=== PATIENT | female | born 1960 | race Caucasian/White ===

== ENCOUNTER 2019-03-04 09:47 | Inpatient (IN) ==
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
[~2019-03-04 09:47] MED LIST: LR 15ML/HR IV SCH
--- NOTE | 2019-03-04 10:59 | History & Physical Bridge Note ---
Date of Service March 04, 2019 History & Physical Bridge Note I have examined the patient, reviewed the History & Physical and in the interval since the performance of the History & Physical I have noted the following changes of clinical significance: no changes noted
[2019-03-04] MEDS ORDERED: BUPIVACAINE 0.5 % 5 MG/1 ML MPF 30ML VIAL ONE (11:09)
[2019-03-04] MEDS ORDERED: SODIUM CHLORIDE 0.9% PF 50 ML VIAL ONE (11:10)
[2019-03-04] MEDS ORDERED: BUPIVACAINE LIPOSOME 1.3% 266 MG/20 ML VIAL ONE (11:10)
[2019-03-04] MEDS ORDERED: ONDANSETRON INJ 2 MG/ML 2 ML VIAL ONE (11:14)
[2019-03-04] MEDS ORDERED: NEOSTIGMINE METHYLSULFATE 5 MG/5 ML SYR ONE (11:14)
[2019-03-04] MEDS ORDERED: MIDAZOLAM HCL 1 MG/ML 2ML VIAL ONE (11:14)
[2019-03-04] MEDS ORDERED: ROCURONIUM BROMIDE 10 MG/ML 5 ML VIAL ONE ×2 (11:14→12:43)
[2019-03-04] MEDS ORDERED: LIDOCAINE HCL 2% 2 ML VIAL/AMP(20MG/ML) INFIL ONE (11:14)
[2019-03-04] MEDS ORDERED: DEXAMETHASONE SOD INJ 4 MG/ML VIAL ONE (11:14)
[2019-03-04] MEDS ORDERED: PROPOFOL IV EMULSION 10 MG/ML 20 ML VIAL IV ONE ×2 (11:14→12:43)
[2019-03-04] MEDS ORDERED: GLYCOPYRROLATE 0.2 MG/ML VIAL ONE (11:14)
[2019-03-04] MEDS ORDERED: fentaNYL citrate 100 MCG/2 ML VIAL ONE ×3 (11:15→12:15)
[2019-03-04] MEDS ORDERED: SCOPOLAMINE 1.5 MG TDSY TD ONE (11:23)
[2019-03-04] MEDS ORDERED: SCOPOLAMINE 1.5 MG TDSY ONE (11:24)
[2019-03-04] MEDS ORDERED: ATROPINE SULFATE 0.1 MG/ML 10ML SYR IV PRN (11:24)
[2019-03-04] MEDS ORDERED: PROMETHAZINE HCL 6.25 MG in SODIUM CHLORIDE 0.9% 50 ML IV PRN (11:24)
[2019-03-04] MEDS ORDERED: ePHEDrine sulfate 50 MG/ML AMP IV PRN (11:24)
[2019-03-04] MEDS ORDERED: HYDROmorphone INJ 2 MG/ML SYR/VIAL IV PRN (11:24)
[2019-03-04] MEDS ORDERED: ONDANSETRON INJ 2 MG/ML 2 ML VIAL IV PRN ×2 (11:24→16:07)
[2019-03-04] MEDS ORDERED: INDOCYANINE GREEN 25 MG/10 ML INJ ONE (12:04)
--- NOTE | 2019-03-04 12:29 | Fluoroscopy Report ---
FL chest 1V frontal CLINICAL HISTORY: NAVIGATIONAL BRONCH IN OR COMPARISON STUDY: 01/31/2019 FLUOROSCOPY TIME: 28 seconds. NUMBER OF FLUOROSCOPIC IMAGES: 1 FINDINGS: A single intraoperative fluoroscopic spot image demonstrates a bronchoscope with a right up per lobe catheter. IMPRESSION: Intraoperative fluoroscopic spot image demonstrating a bronchoscope with a right upper l obe catheter. Electronically signed by: James Espinal M.D. 03/04/2019 12:28 PM
[2019-03-04] MEDS ORDERED: ESMOLOL HCL INJ 10 MG/ML 10ML VIAL IV ONE (12:43)
[2019-03-04] MEDS ORDERED: CLINDAMYCIN 900 MG in DEXTROSE 5% 50 ML IV ONE (12:45)
[2019-03-04] MEDS ORDERED: ALBUTEROL HFA INHALER 8.5 GM ONE (13:12)
[2019-03-04] MEDS ORDERED: SURGICEL ABSORB HEMOSTAT 2IN X 14IN TOP ONE (13:44)
--- NOTE | 2019-03-04 14:16 | Post Operative Brief Note ---
Immediate Post Op Note v1 Date of Surgery March 04, 2019 Pre & Post Diagnosis Operation Date: 03/04/19 11:25 Pre-Op Diagnosis: Right Lung Nodule Post-Op Diagnosis: Right Lung Nodule Procedure Operation Date: 03/04/19 11:25 Actual Procedures p Navigational Bronchoscopy with ICG Markings, - Orville Ernandez MD, FACS s Right Robotic Video Assisted Thoracoscopy with Right Upper Lobe Wedge Resection, Possible Right Upper Lobectomy with Mediastinal Lymphadenectomy(Right) - Orville Ernandez MD, FACS Surgeon Orville Ernandez MD, FACS Pile Driver Eleanor MARINO Estimated Blood Loss 25 Findings Consistent with Post-Op Diagnosis Drains Chest Tube and Weaver Catheter
[2019-03-04] MEDS ORDERED: METOCLOPRAMIDE HCL INJ 5 MG/ML 2 ML VIAL IV ONE (14:31)
--- NOTE | 2019-03-04 14:45 | XRay Report ---
XR chest 1V portable CLINICAL HISTORY: 58 years-old Female presenting with s/p right lung wedge resection. TECHNIQUE: Portable upright AP view of the chest was obtained. COMPARISON: 01/31/2019. FINDINGS: Right pleural drain position of the right upper lung. Cardiac silhouette mildly enlarged. Suture jorge ulis in noted at the right apex. Small right apical pneumothorax. Collapse of the right upper lobe. Extens vivi opacity at the left lung base. Degenerative changes of the thoracic spine. Gaseous distention of stomach. IMPRESSION: 1. Postsurgical changes of the right apex with right upper lobe collapse. 2. Small right apical pneumothorax with a right pleural drain in place. 3. Mild cardiomegaly. 4. Left basilar infiltrate, possibly extensive atelectasis endometrial pleural effusion. Electronically signed by: Sachin Jacob M.D. 03/04/2019 2:44 PM
[2019-03-04] MEDS: fentaNYL citrate 100 MCG/2 ML VIAL IV PRN ×2 (15:16→15:21)
--- NOTE | 2019-03-04 15:54 | Anesthesiology Progress Note ---
Date of Service March 04, 2019 Anesthesia Post Procedure Vital Signs Vital Signs: Temp Pulse Pulse Resp BP BP Pulse Ox 03/04/19 15:45 36.2 C L 74 16 123/72 97 03/04/19 15:35 36.2 C L 72 16 119/70 94 03/04/19 15:25 64 16 117/66 94 03/04/19 15:15 67 18 125/72 95 03/04/19 15:05 69 18 128/70 98 03/04/19 14:55 70 18 116/68 97 03/04/19 14:45 72 18 112/67 96 03/04/19 14:36 36.0 C L 78 18 110/65 97 03/04/19 10:05 36.7 C 78 20 156/93 H 93 Transfer of Care Handoff Completed per policy Notes Mental Status: alert / awake / arousable Patient Amnestic to Procedure: Yes Nausea / Vomiting: adequately controlled Pain: adequately controlled Airway Patency, RR, SpO2: stable & adequate BP & HR: stable & adequate Hydration State: stable & adequate Anesthetic Complications: no major complications apparent Notes: post op nausea well controlled with zofran and phenergan
[2019-03-04] MEDS ORDERED: KETOROLAC TROMETHAMINE 15 MG/ML VIAL IV PRN (16:07)
[2019-03-04] MEDS ORDERED: OXYCODONE HCL IR 5 MG TAB (IMMEDIATE RELEASE) PO PRN (16:07)
[2019-03-04] MEDS ORDERED: MoRPHine SULFATE 2 MG/ML CARP IV PRN (16:07)
[2019-03-04] MEDS: CHECK SCOPOLAMINE PATCH PLACEMENT SCH (17:12)
[2019-03-04] MEDS: ACETAMINOPHEN 1,000 MG/100 ML VIAL IV SCH (17:26)
[2019-03-04] MEDS: METOCLOPRAMIDE HCL INJ 5 MG/ML 2 ML VIAL IV SCH (17:26)
[2019-03-04] MEDS: DOCUSATE SODIUM 100 MG CAP PO SCH (20:24)
[2019-03-04] MEDS ORDERED: GABAPENTIN 600 MG TAB PO SCH (21:00)
[2019-03-04] MEDS: D5W AND 1/2NSS 1,000 ML IV SCH (21:38)
--- NOTE | 2019-03-04 22:13 | Operative Report ---
DATE OF OPERATION: 03/04/2019 PREOPERATIVE DIAGNOSIS: Suspicious mass, right upper lobe. POSTOPERATIVE DIAGNOSIS: Granulomatous nodule, right upper lobe. PROCEDURE: 1. Electromagnetic navigational bronchoscopy with marking of this mass with indocyanine green dye. 2. Robot-assisted right thoracoscopy with wedge resection of right upper lobe mass. 3. Robot-assisted thoracoscopic lymph node dissection. SURGEON: Orville Ernandez MD MANPOWER DEVELOPMENT SPECIALIST: NED Sotelo (Mr. Daniel was present for the entire case, was at the patient's bedside when I was at the console.) ANESTHESIA: General anesthesia with endotracheal intubation. INDICATION FOR PROCEDURE AND FINDINGS: This is a 58-year-old with a remote history of cigarette smoking, who was found to have a mass in her medial right upper lobe which is quite concerning in appearance. We had a long talk about this and I felt that as her PET scan did not light up anywhere else, I would offer her a wedge resection. She sought a second opinion who agreed. On 03/04/2019, the patient underwent an uncomplicated navigational bronchoscopy and we were able to put the probe right at this mass and indocyanine green was injected. We then turned the patient and we were able to find this area and wedged out 3 separate areas to make sure that we got this. All appeared to be granulomas and I did find a mass that appeared to correlate size and location henry with the mass seen on CT/PET. She really had no air leak at the conclusion of the case. I did dissect out several lymph nodes while waiting for the frozen section. She tolerated it well. Was extubated in the room with negligible blood loss. DESCRIPTION OF PROCEDURE: The patient was brought to the operating room and laid in the supine position. General anesthesia was induced, endotracheal intubation was performed with a single lumen tube. After appropriate timeout had been called and prophylactic antibiotics given, a fiberoptic bronchoscope was placed through the adapter into the endotracheal tube and we got down and could see no abnormalities. I closely inspected each of the airways down to the tertiary bronchi. Coming back, I then placed a navigational probe and we registered the airways. Then going out into the right upper lobe, I was able to get to this mass quite quickly. We did see an abnormality on the radial ultrasound. We then injected 0.5 mL of indocyanine green with 2 mL of air. She tolerated it quite well and we removed the scope, we had no bleeding. She was then switched over to a double lumen tube. She was placed in the left lateral decubitus position and the right chest prepped and draped in the usual sterile fashion. One lung ventilation ensued. I made an incision just anterior to the mid axillary line and placed a camera port. Upon placing the camera, we then could see there was really very little in the way of adhesions and we placed anterior port, posterior port, and a further posterior port. The anterior and posterior ports were 8 mm and then the most posterior port was 5 mm. I also placed an office services assistant's port above the right hemidiaphragm at about the tenth interspace. Upon coming in, there was one area of adhesions at the left of the chest wall, which were flimsy and taken down easily. We then saw the indocyanine green dye quite nicely and we wedged this out. This was sent for frozen section. I really did not see anything, however, there was a nodule next to this. I wedged this out also. I sent off another segment off this and there were 3 separate segments. While waiting for the frozen section, I went down and biopsied the level 2, 4, 7, 10, and 11 lymph node stations. These all appeared to be benign grossly. We really did not get any bleeding. Frozen section came back as granulomatous disease in all 3 of the specimens. For this reason, we stopped and sent off some for culture. There was no significant bleeding. It should be noted that we used 266 mg of Exparel and 20 mL of solution were mixed with 30 mL of 0.5% Marcaine and 250 mL of normal saline and used to inject not only at each of the port sites, but also did an intercostal block from the 2nd to the 11th ribs intrathoracically. A 24-Occitan chest tube was placed through the anterior thoracoscopy port and directed towards the apex. It was sutured in place with heavy silk suture. A 0 Vicryl was used to close the deeper muscle layers and 4-0 Monocryl was used in running subcuticular fashion to approximate the wound edges. She tolerated it well and was extubated in the room. Frozen section came back being consistent with granulomatous disease. I attest to the content of the Intraoperative Record and any orders documented therein. Any exceptions are noted below. LULYD
[2019-03-05] MEDS: CHECK SCOPOLAMINE PATCH PLACEMENT SCH (00:19)
[2019-03-05] MEDS: METOCLOPRAMIDE HCL INJ 5 MG/ML 2 ML VIAL IV SCH ×2 (00:20→08:24)
[2019-03-05] MEDS: ACETAMINOPHEN 1,000 MG/100 ML VIAL IV SCH (00:33)
[2019-03-05] MEDS: D5W AND 1/2NSS 1,000 ML IV SCH (05:34)
[2019-03-05 05:41] LABS: Hematocrit (blood only) 35.3 % (37-47); Hemoglobin 11.7 g/dL (12.0-16.0); Mean Corpuscular Hgb Conc 33.1 g/dL (32-36); Mean Corpuscular Volume 83.8 fL (80-100); Mean Platelet Volume 10.2 fL (7.4-10.4); Platelet Count 191 K/uL (130-400); RDW Coefficient of Variation 13.4 % (11.5-14.5); RDW Standard Deviation 40.7 fL (36.4-46.3); Red Blood Count 4.21 M/uL (4.2-5.4); White Blood Count 12.85 K/uL (4.8-10.8)
[2019-03-05 05:53] LABS: Prothrombin Time 10.5 Seconds (9.0-12.0)
[2019-03-05 06:08] LABS: Creatinine Clr Calc Pharmacy 81.3 ml/min; Est GFR (African American) 88.8; Est GFR (Non-African American) 76.6
[2019-03-05] MEDS ORDERED: LEVOTHYROXINE SODIUM 25 MCG TABLET PO SCH (06:30)
--- NOTE | 2019-03-05 07:03 | XRay Report ---
XR chest 1V portable CLINICAL HISTORY: Right wedge resection postoperative COMPARISON STUDY: 03/04/2019 FINDINGS: Improved aeration right pulmonary apex. The consolidative change has shown considerable imp rovement. Decreased size of a small right apical pneumothorax. Current postseparation 1.1 cm. Lungs otherwise are grossly clear. Right-sided chest tube is unchanged in position. There is a small amount of subcutaneous emphysema. IMPRESSION: Improving postoperative exam. Improved aeration right apex. Minimal residual pneumothora x. The above report was generated using voice recognition software. It may contain grammatical, syntax or spelling errors. Electronically signed by: Mauricio Lebron M.D. 03/05/2019 7:02 AM
--- NOTE | 2019-03-05 08:16 | XRay Report ---
XR chest 1V portable CLINICAL HISTORY: chest tube removal COMPARISON STUDY: 03/05/2019 6:56 AM FINDINGS: No significant pneumothorax post chest tube removal. Minimal parenchymal marking prominence both lung bases. Minimal residual subcutaneous emphysematous change. IMPRESSION: No significant pneumothorax post chest tube removal. The above report was generated using voice recognition software. It may contain grammatical, syntax or spelling errors. Electronically signed by: Mauricio Lebron M.D. 03/05/2019 8:15 AM
[2019-03-05] MEDS: DOCUSATE SODIUM 100 MG CAP PO SCH (08:24)
[2019-03-05] MEDS ORDERED: ENOXAPARIN INJ 40 MG/0.4 ML SYR SQ SCH (09:00)
--- NOTE | 2019-03-05 10:50 | Anesthesiology Progress Note ---
Date of Service March 05, 2019 Anesthesia Post Procedure Vital Signs Vital Signs: Temp Pulse Pulse Resp BP BP Pulse Ox 03/05/19 08:49 36.8 C 72 16 111/70 111/65 94 03/05/19 07:17 36.8 C 72 16 111/70 94 03/05/19 06:14 37.0 C 73 20 107/64 94 03/05/19 04:15 36.6 C 74 20 111/67 93 03/05/19 02:18 36.8 C 65 20 112/61 94 03/05/19 00:13 36.7 C 77 20 107/66 93 03/04/19 22:13 37.0 C 74 16 118/70 91 03/04/19 20:22 37.0 C 91 H 18 111/65 93 03/04/19 19:15 36.9 C 79 16 124/67 93 03/04/19 18:04 36.4 C L 77 16 104/64 95 03/04/19 17:04 36.8 C 75 16 117/73 94 03/04/19 16:32 36.9 C 73 14 130/74 92 03/04/19 16:05 36.5 C 70 14 123/70 91 03/04/19 15:45 36.2 C L 74 16 123/72 97 03/04/19 15:35 36.2 C L 72 16 119/70 94 03/04/19 15:25 64 16 117/66 94 03/04/19 15:15 67 18 125/72 95 03/04/19 15:05 69 18 128/70 98 03/04/19 14:55 70 18 116/68 97 03/04/19 14:45 72 18 112/67 96 03/04/19 14:36 36.0 C L 78 18 110/65 97 Notes Mental Status: alert / awake / arousable and participated in evaluation Patient Amnestic to Procedure: Yes Nausea / Vomiting: adequately controlled Pain: adequately controlled Airway Patency, RR, SpO2: stable & adequate BP & HR: stable & adequate Hydration State: stable & adequate Anesthetic Complications: no major complications apparent and Pt Satisfied with anesthetic care
[2019-03-05] MEDS ORDERED: ACETAMINOPHEN 325 MG TAB PO SCH (12:00)
--- NOTE | 2019-03-06 01:37 | Discharge Summary ---
DISCHARGE DIAGNOSIS: Granulomatous disease, right upper lobe. HOSPITAL COURSE: Tyesha is a 58-year-old who has a remote history of cigarette smoking and was found to have a new mass in her medial right upper lobe, which certainly appeared ominous. We had a long talk about this and we elected to proceed with a navigational bronchoscopy with marking with ICG dye and then wedging this out robotically. This was performed on 03/04/2019 without difficulty. We wedged this mass out. I was quite pleased with the finding of this with ICG dye. We were fairly aggressive removing a fair amount of her right upper lobe. Frozen section on this showed granulomas. Dr. Christensen from pathology was fairly confident that these were granulomas and did not represent malignancy. For this reason, we closed. She looked great. She had good pain control from her intercostal blocks. I removed her chest tube on the morning after surgery and we discharged her as her x-ray looked quite good. We will see her back in a week to go over her final pathology.
== END 2019-03-05 09:30 | disposition home or self-care (01) | DRG 168 ==
LOC: ASU 09:47 → 3N 14:20